=== PATIENT | male | born 1945 ===

== ENCOUNTER 2017-09-25 08:12 | Day surgery (SDC) | payer MEDICARE, SELFPAY ==
[2017-09-19 10:22] VITALS: BMI 29.0
[2017-09-25] MEDS ORDERED: Phenylephrine 2.5% Opht Soln OS ONE (09:00)
[2017-09-25] MEDS ORDERED: Tropicamide 1% Opht 150 DROP/15 ML OS SCH (09:00)
[2017-09-25] MEDS ORDERED: Lactated Ringer's 1,000 ML IV ONE (09:00)
[2017-09-25] MEDS ORDERED: Ofloxacin Ophth 0.3% Soln OS SCH (09:00)
[2017-09-25] MEDS ORDERED: Tetracaine 0.5% Ophth 2 ML BOTTLE ONE (09:08)
[2017-09-25] MEDS ORDERED: Maxitrol Opht Susp ONE (09:08)
[2017-09-25] MEDS ORDERED: Acetylcholine 1% Opth System Pack IO ONE (09:08)
[2017-09-25] MEDS ORDERED: EPINEPHrine 1 mg/ml (1:1000) Inj ONE (09:09)
[2017-09-25] MEDS ORDERED: CA CL/K CL/NA CL 500 ML IR ONE (09:09)
[2017-09-25] MEDS ORDERED: BSS 15 ML 45 ML IR ONE (09:09)
[2017-09-25] MEDS ORDERED: Chondroitin/Hyaluronate Opth Syringe KIT (0.55 ml-0.5 ml) IO ONE (09:09)
[2017-09-25] MEDS ORDERED: Pilocarpine 1% Opht Soln ONE (09:09)
[2017-09-25] MEDS ORDERED: Povidone Iodine 5% Opht SOLUTION ONE (09:10)
[2017-09-25] MEDS ORDERED: Flurbiprofen 0.3% Opht SOLN OS ONE (09:15)
[2017-09-25] MEDS ORDERED: Midazolam 2 MG/2 ML VIAL ONE (10:30)
[2017-09-25] MEDS ORDERED: Lidocaine 1% 20 MG/2 ML PF AMP EP ONE (10:45)
[2017-09-25 16:00] VITALS: BP 137/76; PULSE 67; RESP 67; TEMP 98; O2SAT 96
--- NOTE | 2017-09-27 07:06 | OP ---
PROCEDURE DATE : 09/25/17 SURGEON: CHEN WATSON MD ANESTHESIOLOGIST: LUCHO SCHUSTER MD ANESTHESIA: LOCAL / IV SEDATION PREOPERATIVE DIAGNOSIS: CATARACT LEFT EYE. POSTOPERATIVE DIAGNOSIS: CATARACT LEFT EYE. OPERATION: CLEAR CORNEAL PHACOEMULSIFICATION WITH LENS IMPLANT LEFT EYE. PREPARATION AND PROCEDURE: After the patient was prepped and draped in the usual manner for sterile ophthalmic surgery, local IV sedation was administered ; eye seals were applied to the upper and lower lid margins and an adult wire lid speculum was placed within the lids. Under microsurgical control, a two- step clear corneal incision was made into the anterior chamber. The initial incision was perpendicular to the corneal plane. The second incision with the keratome was placed at a 45-degree angle to the first incision. One cc of one percent Xylocaine MPF was instilled into the anterior chamber to achieve proper intraocular anesthesia. At this time, the Viscoelastic was injected into the anterior chamber for protection of the endothelium and for maintenance of the chamber depth. A 360-degree continuous curvilinear capsulorrhexis was performed using a pre-bent 25-gauge needle. Hydrodissection and hydrodelineation were performed using a Reyes cannula and balanced salt solution. Utilizing the tip of the Reyes cannula, the nucleus was rotated freely within the capsular bag. A standard one-handed phacoemulsification was utilized at this time for sculpting and rotating of the nucleus. The nucleus was fragmented in its entirety and aspirated without any consequence. A standard I&A was carried out for the residual cortical material. No residual material was noted within the capsular bag. The posterior capsule was noted to be clear. Additional Viscoelastic was injected into the capsular bag in preparation for lens implantation. After this has been satisfactorily achieved the intraocular lens injected through the corneal incision into the capsular bag. The intraocular lens was manipulated until it was properly oriented and the Viscoelastic was evacuated from the capsular bag and anterior chamber. The anterior chamber was reformed with balanced salt solution. The corneal incision was irrigated with BSS. The intraocular pressure was found to be within normal limits. This terminated the procedure. The speculum and lid drapes were removed. TobraDex ophthalmic suspension and Piloc[place] 1% drops one drop was applied to the eye. POSTOPERATIVE CONDITION: The patient was brought to the Post anesthesia Recovery area with stable vital signs. DCHEN DAWSON MD
== END 2017-09-25 14:20 | disposition home or self-care (01) ==
LOC: H.OPSURG 08:12
PROVIDERS: ATTEND Ophthalmology
DX: H25.812 Combined forms of age-related cataract, left eye (principal); E78.5 Hyperlipidemia, unspecified; I10 Essential (primary) hypertension; F32.9 Major depressive disorder, single episode, unspecified
CPT/HCPCS: 66984; J0171; J2250; J3010; J7120; V2632

== ENCOUNTER 2017-10-03 21:10 | Inpatient (IN) | payer MEDICARE, OTHER ==
[2017-10-03 21:10] VITALS: BMI 29.0
[2017-10-03] MEDS ORDERED: Albuterol-Ipratrop 3 mg / 0.5 (3 ml) UD IH STA (23:58)
--- NOTE | 2017-10-04 00:01 | ED PDOC ---
HPI: CCC, URI, Sore Throat <Pratik Mack - Last Filed: 10/04/17 02:14> Chief Complaint (Provider): flu-like symptoms History Per: Patient History/Exam Limitations: no limitations Onset/Duration Of Symptoms: Days (2) Current Symptoms Are (Timing): Still Present Location Of Pain: Diffuse Myalgias Associated Symptoms: Fever, Chills, Cough, Myalgias, Nasal Congestion Additional History Per: Patient <Sarah Amaro - Last Filed: 10/04/17 03:59> Time Seen by Provider: 10/03/17 23:28 Chief Complaint (Nursing): Fever Additional Complaint(s): 72 y/o male presents with flu-like symptoms x 2 days. Patient reports fever, tmax 103, sneezing, nasal congestion, and productive cough. Patient notes pain in chest and back when coughing. Denies headache, neck pain, vomiting, shortness of breath, palpitations, abdominal pain, changes in bowel movements. Theraflu taken at 20:30. (Sarah Amaro) Past Medical History <Pratik Mack - Last Filed: 10/04/17 02:14> Reviewed: Historical Data, Nursing Documentation, Vital Signs - Medical History PMH: Anxiety, Depression, HTN, Hypercholesterolemia, Kidney Stones - Surgical History Surgical History: Cholecystectomy - Family History Family History: States: Unknown Family Hx - Immunization History Hx Tetanus Toxoid Vaccination: No Hx Influenza Vaccination: No Hx Pneumococcal Vaccination: No <Sarah Amaro - Last Filed: 10/04/17 03:59> Vital Signs: Last Vital Signs Temp 99.7 F H 10/03/17 22:13 Pulse 85 10/04/17 01:53 Resp 20 10/03/17 23:41 BP 127/72 10/03/17 23:41 Pulse Ox 95 10/04/17 02:07 - Home Medications Home Medications: Ambulatory Orders Medication Instructions Recorded Acetaminophen [Tylenol 325mg tab] 325 mg PO Q6 09/25/17 Dexlansoprazole [Dexilant] 60 mg PO DAILY 09/25/17 Mirtazapine [Remeron] 15 mg PO HS 09/25/17 Sertraline [Zoloft] 10 mg PO DAILY 09/25/17 Simvastatin [Zocor] 20 mg PO HS 09/25/17 Valsartan [Diovan] 40 mg PO DAILY 09/25/17 - Allergies Allergies/Adverse Reactions: Allergies Allergy/AdvReac Type Severity Reaction Status Date / Time No Known Allergies Allergy Verified 09/25/17 08:33 Review of Systems ROS Statement: Except As Marked, All Systems Reviewed And Found Negative Constitutional: Positive for: Fever, Chills ENT: Positive for: Nose Congestion Respiratory: Positive for: Cough <Sarah Amaro C - Last Filed: 10/04/17 03:59> Physical Exam - Reviewed Nursing Documentation Reviewed: Yes Vital Signs Reviewed: Yes - Physical Exam Appears: Positive for: Well, Non-toxic, No Acute Distress Head Exam: Positive for: ATRAUMATIC, NORMAL INSPECTION, NORMOCEPHALIC Skin: Positive for: Normal Color Eye Exam: Positive for: Normal appearance ENT: Positive for: Nasal Congestion Neck: Positive for: Normal Cardiovascular/Chest: Positive for: Regular Rate, Rhythm Respiratory: Positive for: Normal Breath Sounds Gastrointestinal/Abdominal: Positive for: Normal Exam Back: Positive for: Normal Inspection Extremity: Positive for: Normal ROM Neurologic/Psych: Positive for: Alert, Oriented <Sarah Amaro C - Last Filed: 10/04/17 03:59> - Laboratory Results Result Diagrams: 10/04/17 00:50 10/04/17 00:50 <Pratik Mack - Last Filed: 10/04/17 02:14> - Laboratory Results Result Diagrams: 10/04/17 00:50 10/04/17 00:50 - ECG O2 Sat by Pulse Oximetry: 95 <Ann Amaroanda Mario - Last Filed: 10/04/17 03:59> - Progress ED Course And Treament: labs, flu, chest xray, ibuprofen PO, duoneb EXAM: XR Chest, 2 Views CLINICAL HISTORY: 72 years old, male; Signs and symptoms; Fever; Additional info: Fever, cough TECHNIQUE: Frontal and lateral views of the chest. COMPARISON: CR - CHEST TWO VIEWS (PA/LAT) 2017-09-19 10:33 FINDINGS: Lungs: There is minimal bibasilar atelectasis. Pleural space: Unremarkable. No pneumothorax. Heart: Unremarkable. No cardiomegaly. Mediastinum: Unremarkable. Bones/joints: Degenerative changes. IMPRESSION: No active disease. Patient flu+. Tamiflu PO given. On re-eval, patient O2 92% on room air Case discussed with Dr. Radford, FP resident on-call, for placement in observation for hypoxia with influenza (Sarah Amaro) Disposition <Pratik Mack - Last Filed: 10/04/17 02:14> - Patient ED Disposition Is Patient to be Admitted: Yes - Disposition Disposition Time: 03:30 <Sarah Amaro - Last Filed: 10/04/17 03:59> - Clinical Impression Clinical Impression: Influenza, Hypoxia - Disposition Condition: FAIR
[2017-10-04 00:58] LABS: VENOUS BLOOD GAS BASE EXCESS -0.1 mmol/L (0.0-2.0); VENOUS BLOOD GAS PCO2 36 mmHg (40-60); VENOUS BLOOD GAS PO2 54 mm/Hg (30-55); VENOUS BLOOD PH 7.43 (7.32-7.43)
[2017-10-04] MEDS ORDERED: Albuterol-Ipratrop 3 mg / 0.5 (3 ml) UD ONE (01:02)
[2017-10-04 01:06] LABS: BASO # 0.1 K/uL (0.0-0.2); BASO % 0.7 % (0.0-2.0); EOS % 0.3 % (0.0-4.0); HEMOGLOBIN 13.9 g/dL (12.0-18.0); LYMPH # 0.7 K/uL (1.0-4.3); LYMPH % 8.4 % (20.0-40.0); MEAN CORPUSCULAR HGB CONC 33.4 g/dL (33.0-37.0); MEAN PLATELET VOLUME 9.3 fl (7.2-11.7); MONO # 0.7 K/uL (0.0-0.8); MONO % 8.6 % (0.0-10.0); NEUT # 6.8 K/uL (1.8-7.0); NRBC % 0.1 % (0.0-0.0); PLATELET COUNT 147 K/uL (130-400); RBC 4.49 Mil/uL (4.40-5.90); RED CELL DISTRIBUTION WIDTH 13.4 % (11.5-14.5); WHITE BLOOD COUNT 8.3 K/uL (4.8-10.8)
[2017-10-04 01:43] LABS: ALB/GLOB RATIO 1.4 (1.0-2.1); ALBUMIN 4.3 g/dL (3.5-5.0); ALT/SGPT 93 U/L (21-72); AST/SGOT 60 U/L (17-59); BLOOD UREA NITROGEN 13 mg/dl (9-20); CALCIUM 9.2 mg/dL (8.4-10.2); GFR AFRICAN-AMERICAN > 60; GFR NON-AFRICAN AMERICAN > 60
--- NOTE | 2017-10-04 02:01 | RAD ---
EXAM: XR Chest, 2 Views CLINICAL HISTORY: 72 years old, male; Signs and symptoms; Fever; Additional info: Fever, cough TECHNIQUE: Frontal and lateral views of the chest. COMPARISON: CR - CHEST TWO VIEWS (PA/LAT) 2017-09-19 10:33 FINDINGS: Lungs: There is minimal bibasilar atelectasis. Pleural space: Unremarkable. No pneumothorax. Heart: Unremarkable. No cardiomegaly. Mediastinum: Unremarkable. Bones/joints: Degenerative changes. IMPRESSION: No active disease.
--- NOTE | 2017-10-04 03:26 | CP.PCM.HP ---
History of Present Illness - History of Present Illness History of Present Illness: 72 yo ,m,PMhx/o HTN, HLD, Anxiety, Depression presents to Ed c/o dry cough started 2 days ago associated with fever T max 103 , malaise, generalized body aches, sore throat, low appetite, nausea. He denies SOB, chest pain, vomiting, diarrhea, dysuria, sick contact, recent travel, hx/o DVT, orthopnea, PND, pedal edema. Patient had flu shot 05/2017. On evaluation of patient, no respiratory distress noted but O2 sat 88-90 while speaking. PMD: [facility]. Dr Brooke PMhx: HTN, HLD, Anxiety, Depression Allergies: NKDA Meds: Simvastatin 20 mg daily, Valsartan 40 mg daily, Mirtazapine 15 mg daily, Sertraline 100 mg daily . PSurgHx: Left knee arthroscopy x 3 times. Prostate laser procedure, cholecystectomy, Right inguinal hernia, Left eye cataracts. Pending right eye cataracts next week. PShx: No ETOH,rect drugs, cig ED Course VS: O2 sat 95, rest normal. Labs: CBC: wbc normal. Neutrophilia . VBG: PH normal, PO2 normal. PCO2 36. Flu test positive for influenza A Imaging: CXR: no acute disease, no infiltrates. Meds: Duoneb, tamiflu Present on Admission - Present on Admission Any Indicators Present on Admission: No History of DVT/PE: No History of Uncontrolled Diabetes: No Urinary Catheter: No Review of Systems - Constitutional Constitutional: As Per HPI, Anorexia, Fatigue, Fever - Cardiovascular Cardiovascular: As Per HPI - Respiratory Respiratory: absent: Dyspnea - Gastrointestinal Gastrointestinal: As Per HPI Past Patient History - Infectious Disease Hx of Infectious Diseases: None - Past Medical History & Family History Past Medical History?: Yes - Past Social History Smoking Status: Never Smoked - CARDIAC Hx Hypercholesterolemia: Yes Hx Hypertension: Yes - HEENT Hx Cataracts: Yes - RENAL Hx Kidney Stones: Yes - MUSCULOSKELETAL/RHEUMATOLOGICAL Hx Falls: No - GASTROINTESTINAL Hx Ulcer: Yes - GENITOURINARY/GYNECOLOGICAL Hx Prostate Problems: Yes - PSYCHIATRIC Hx Anxiety: Yes Hx Depression: Yes - SURGICAL HISTORY Hx Cholecystectomy: Yes - ANESTHESIA Hx Anesthesia: Yes Hx Anesthesia Reactions: No Hx Malignant Hyperthermia: No Meds Allergies/Adverse Reactions: Allergies Allergy/AdvReac Type Severity Reaction Status Date / Time No Known Allergies Allergy Verified 09/25/17 08:33 Physical Exam - Constitutional Appears: No Acute Distress - Head Exam Head Exam: ATRAUMATIC, NORMOCEPHALIC - Eye Exam Eye Exam: Normal appearance - ENT Exam ENT Exam: Mucous Membranes Moist - Respiratory Exam Respiratory Exam: Clear to Auscultation Bilateral. absent: Rhonchi, Wheezes - Cardiovascular Exam Cardiovascular Exam: REGULAR RHYTHM, +S1, +S2 - GI/Abdominal Exam GI & Abdominal Exam: Normal Bowel Sounds, Soft. absent: Guarding, Tenderness - Extremities Exam Extremities exam: Positive for: normal inspection. Negative for: calf tenderness - Neurological Exam Neurological exam: Alert, Oriented x3 - Psychiatric Exam Psychiatric exam: Normal Affect, Normal Mood - Skin Skin Exam: Intact Results - Vital Signs Recent Vital Signs: Last Vital Signs Temp 99.7 F H 10/03/17 22:13 Pulse 85 10/04/17 01:53 Resp 20 10/03/17 23:41 BP 127/72 10/03/17 23:41 Pulse Ox 95 10/04/17 02:07 - Labs Result Diagrams: 10/04/17 00:50 10/04/17 00:50 Labs: Laboratory Results - last 24 hr 10/04/17 10/04/17 10/04/17 00:50 00:50 00:50 WBC 8.3 RBC 4.49 Hgb 13.9 Hct 41.8 MCV 93.0 MCH 31.0 MCHC 33.4 RDW 13.4 Plt Count 147 MPV 9.3 Neut % (Auto) 82.0 H Lymph % (Auto) 8.4 L [place] % (Auto) 8.6 Eos % (Auto) 0.3 Baso % (Auto) 0.7 Neut # (Auto) 6.8 Lymph # (Auto) 0.7 L [place] # (Auto) 0.7 Eos # (Auto) 0.0 Baso # (Auto) 0.1 pO2 VBG pH VBG pCO2 VBG HCO3 VBG Total CO2 VBG O2 Sat (Calc) VBG Base Excess VBG Potassium Glucose Lactate FiO2 Sodium 136 Potassium 3.9 Chloride 102 Carbon Dioxide 23 Anion Gap 15 BUN 13 Creatinine 1.0 Est GFR ( Amer) > 60 Est GFR (Non-Af Amer) > 60 Random Glucose 140 H Calcium 9.2 Total Bilirubin 1.6 H AST 60 H D ALT 93 H D Alkaline Phosphatase 77 Troponin I 0.0300 Total Protein 7.4 Albumin 4.3 Globulin 3.1 Albumin/Globulin Ratio 1.4 Venous Blood Potassium Influenza Typ A,B (EIA) Pos for influenza a H 10/04/17 00:55 WBC RBC Hgb Hct MCV MCH MCHC RDW Plt Count MPV Neut % (Auto) Lymph % (Auto) [place] % (Auto) Eos % (Auto) Baso % (Auto) Neut # (Auto) Lymph # (Auto) [place] # (Auto) Eos # (Auto) Baso # (Auto) pO2 54 VBG pH 7.43 VBG pCO2 36 L VBG HCO3 24.6 VBG Total CO2 25.0 VBG O2 Sat (Calc) 93.3 H VBG Base Excess -0.1 L VBG Potassium 3.8 Glucose 142 H Lactate 1.0 FiO2 21.0 Sodium 133.0 Potassium Chloride 101.0 Carbon Dioxide Anion Gap BUN Creatinine Est GFR ( Amer) Est GFR (Non-Af Amer) Random Glucose Calcium Total Bilirubin AST ALT Alkaline Phosphatase Troponin I Total Protein Albumin Globulin Albumin/Globulin Ratio Venous Blood Potassium 3.8 Influenza Typ A,B (EIA) Assessment & Plan - Assessment and Plan (Free Text) Plan: 72 yo ,m,PMhx/o HTN, HLD, Anxiety, Depression admitted for Influenza and Hypoxia Assessment/Plan 1)Influenza -influenza test positive for Influenza A -CXR: normal, no infiltrates -s/p tamiflu Ed -c/w Tamiflu 75 mg BID x 5 days -Admit telemetry -Hypoxia noted on room air 88-90 while speaking -no respiratory distress -O2 NC 3L PRN SOB -Duoneb PRN sob 2)Transaminitis -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 7)DVT Prophylaxis -Lovenox 40 mg sc daily
[2017-10-04] MEDS ORDERED: Albuterol-Ipratrop 3 mg / 0.5 (3 ml) UD INH PRN (03:38)
[2017-10-04 03:55] LABS: BANDS 1 % (0-2); LYMPHOCYTE 6 % (20-50); MONOCYTE 5 % (0-10); NEUTROPHIL 85 % (42-75); PLATELET ESTIMATE NORMAL (NORMAL); REACTIVE LYMPHOCYTES 3 % (0-0); TOTAL CELLS COUNTED 100
[2017-10-04] MEDS: Enoxaparin 40 mg Syringe SC SCH (09:42)
[2017-10-04] MEDS: Pantoprazole 40 mg EC Tab PO SCH (09:45)
[2017-10-04] MEDS ORDERED: Pneumococcal 23-Valent Vaccine IM ONE (10:18)
--- NOTE | 2017-10-04 11:14 | CARD ---
APPROVED REPORT EKG Measurement Heart [id number] <Conclusion> Normal sinus rhythm Left ventricular hypertrophy with repolarization abnormality Abnormal ECG artefact present
[2017-10-04] MEDS: Ofloxacin Ophth 0.3% Soln OS SCH ×2 (17:48→22:01)
[2017-10-04] MEDS: DICLOFENAC SODIUM OS SCH (17:48)
[2017-10-04] MEDS: PrednisoLONE 1% OPTH SUSP OS SCH ×2 (17:49→22:03)
[2017-10-04] MEDS: Promethazine/Cod 6.25mg-10mg/5ml Syr UD PO SCH ×2 (17:52→22:01)
--- NOTE | 2017-10-04 18:01 | RAD ---
HISTORY: r/o pna COMPARISON: Comparison chest dated 10/04/2017. TECHNIQUE: Chest PA and lateral FINDINGS: LUNGS: Minor bibasilar atelectasis and/or scarring. PLEURA: No significant pleural effusion identified. No pneumothorax apparent. CARDIOVASCULAR: Normal. OSSEOUS STRUCTURES: Minor multilevel degenerative spondylosis of the thoracic spine. Open the VISUALIZED UPPER ABDOMEN: Normal. OTHER FINDINGS: None. IMPRESSION: Minor bibasilar atelectasis or scarring.
[2017-10-05] MEDS: DICLOFENAC SODIUM OS SCH ×3 (01:08→16:40)
[2017-10-05] MEDS: Promethazine/Cod 6.25mg-10mg/5ml Syr UD PO SCH ×4 (04:23→21:14)
[2017-10-05] MEDS: Ofloxacin Ophth 0.3% Soln OS SCH ×4 (04:24→21:14)
[2017-10-05] MEDS: PrednisoLONE 1% OPTH SUSP OS SCH ×4 (04:25→21:16)
--- NOTE | 2017-10-05 07:28 | PQF GENQUE ---
This form is a permanent part of the medical record 10/05/17 Dr. Butch Crump, The medical record ( H&P ) includes the following unknown abbreviation: Transaminitis may be secondary to NAFLD Please document the associated medical diagnosis related to the above abbreviation. Clarification of your documentation is requested to better reflect the severity of illness and intensity of treatment of your patient. Indicators present PHYSICIAN'S RESPONSE Non alcholoco liver disease Based on your medical judgment of the clinical indicators outlined above please clarify the following: [] Practitioner response [] If unable to determine, please check the box, sign and date. Present On Admission (POA) Indicator: [] Present at the time of admission [] Not present at the time of admission [] Clinically Undetermined In responding to this query, please exercise your independent professional judgment. The fact that a question is asked does not imply that any particular answer is desired or expected. Thank you for your clarification on this documentation. If you have any questions please call:ext [phone] * Thank you, Cora Munguia RN [facility]
[2017-10-05] MEDS: Pantoprazole 40 mg EC Tab PO SCH (08:40)
[2017-10-05] MEDS: Enoxaparin 40 mg Syringe SC SCH (08:41)
--- NOTE | 2017-10-05 14:07 | CP.PCM.PN ---
Subjective - Date & Time of Evaluation Date of Evaluation: 10/05/17 Time of Evaluation: 09:30 - Subjective Subjective: Patient seen and examined this morning. NAD, Afebrile, comfortably breathing on 2L NC, denies any acute event overnight but he is c/o coughing, sore throat, body aches and mild dizziness. Denies any vomiting, chest pain, SOB, numbness, tingling or urinary symptoms. Patient is tolerating PO diet. Objective - Vital Signs/Intake and Output Vital Signs (last 24 hours): Temp Pulse Resp BP Pulse Ox 98.3 F 71 20 116/69 97 10/05/17 12:00 10/05/17 12:00 10/05/17 12:00 10/05/17 12:00 10/05/17 12:00 Intake and Output: 10/05/17 10/05/17 06:59 18:59 Intake Total 1200 Balance 1200 - Medications Medications: Current Medications Acetaminophen (Tylenol 325mg Tab) 650 mg PO Q6 PRN PRN Reason: Pain, Mild (1-3) Last Admin: 10/04/17 17:54 Dose: 650 mg Acetaminophen (Tylenol 325mg Tab) 650 mg PO Q6 PRN PRN Reason: Fever >100.4 F Albuterol/Ipratropium (Duoneb 3 Mg/0.5 Mg (3 Ml) Ud) 3 ml INH RQ6 PRN PRN Reason: Shortness of Breath Atorvastatin Calcium (Lipitor) 10 mg PO HS [facility] Last Admin: 10/04/17 22:01 Dose: 10 mg Enoxaparin Sodium (Lovenox) 40 mg SC DAILY [facility] PRN Reason: Protocol Last Admin: 10/05/17 08:41 Dose: 40 mg Home Med (Diclofenac Sodium [Diclozor]) 1 each OS Q8 [facility] Last Admin: 10/05/17 08:42 Dose: Not Given Mirtazapine (Remeron) 15 mg PO HS [facility] Last Admin: 10/04/17 22:01 Dose: 15 mg Ofloxacin (Ocuflox Ophth 0.3%) 1 drop OS Q6 [facility] Last Admin: 10/05/17 10:00 Dose: 1 drop Ondansetron HCl (Zofran Inj) 4 mg IVP Q6 PRN PRN Reason: Nausea/Vomiting Oseltamivir Phosphate (Tamiflu Cap) 75 mg PO Q12 [facility] PRN Reason: Protocol Last Admin: 10/05/17 08:41 Dose: 75 mg Pantoprazole Sodium (Protonix Ec Tab) 40 mg PO DAILY [facility] Last Admin: 10/05/17 08:40 Dose: 40 mg Pneumococcal Polyvalent Vaccine (Pneumovax 23 Vaccine) 0.5 ml IM .ONCE ONE Stop: 10/18/17 15:08 Prednisolone Acetate (Pred Forte 1% Opht Susp) 1 drop OS Q6 [facility] Last Admin: 10/05/17 10:00 Dose: 1 drop Promethazine HCl/Codeine (Phenergan/Codeine Oral Syrup) 5 ml PO Q6 [facility] Last Admin: 10/05/17 10:02 Dose: 5 ml Sertraline HCl (Zoloft) 100 mg PO DAILY [facility] Last Admin: 10/05/17 08:41 Dose: 100 mg Valsartan (Diovan) 40 mg PO DAILY [facility] Last Admin: 10/05/17 08:42 Dose: 40 mg - Labs Labs: 10/04/17 00:50 10/04/17 00:50 - Constitutional Appears: No Acute Distress - Head Exam Head Exam: ATRAUMATIC, NORMAL INSPECTION, NORMOCEPHALIC - Eye Exam Eye Exam: EOMI, Normal appearance, PERRL - ENT Exam ENT Exam: Mucous Membranes Moist - Neck Exam Neck Exam: Normal Inspection - Respiratory Exam Respiratory Exam: Clear to Ausculation Bilateral, NORMAL BREATHING PATTERN. absent: Accessory Muscle Use - Cardiovascular Exam Cardiovascular Exam: REGULAR RHYTHM - GI/Abdominal Exam GI & Abdominal Exam: Soft, Normal Bowel Sounds. absent: Tenderness - Extremities Exam Extremities Exam: Full ROM, Normal Capillary Refill, Normal Inspection - Back Exam Back Exam: absent: CVA tenderness (L), CVA tenderness (R) - Neurological Exam Neurological Exam: Alert, Awake, Oriented x3 - Psychiatric Exam Psychiatric exam: Normal Affect - Skin Skin Exam: Dry, Intact, Normal Color, Warm Assessment and Plan - Assessment and Plan (Free Text) Assessment: A/P: 72 y/o male with HTN, HLD, Anxiety, Depression admitted for Influenza and Hypoxia 1)Influenza -Positive for Influenza A -CXR: normal, no infiltrates -c/w Tamiflu 75 mg BID x 5 days -Phenergan/Codeine Oral Syrup 5 ml PO Q6 for sore throat -Tylenol PRN 2) Hypoxia -May be due to viral infection -Hypoxia noted on room air 88-90 while speaking on admission -D/c oxygen NC today -Monitor Spo2, VS and Respiratory status -Duoneb PRN -Walk test today 3) Mild asymptomatic Transaminitis -May be secondary to Nonalcoholic liver disease -AST/ALT 60/93 -pt also taking statin 4)HTN -c/w home medications Valsartan 40 mg daily 5)HLD -Simvastatin 20 mg daily 6) Diabetes Mellitus Type II -HBA1C 6.8 -Out patient follow up eliane' -Lifestyle Modifications and diet control 7)Depression -c/w home meds Mirtazepine, Sertraline. 8)DVT Prophylaxis -Lovenox 40 mg sc daily 9)GI PPX -PPI
[2017-10-06] MEDS: DICLOFENAC SODIUM OS SCH ×2 (00:16→09:38)
[2017-10-06] MEDS: PrednisoLONE 1% OPTH SUSP OS SCH ×2 (04:10→09:40)
[2017-10-06] MEDS: Promethazine/Cod 6.25mg-10mg/5ml Syr UD PO SCH ×2 (04:10→12:09)
[2017-10-06 04:13] VITALS: RESP 18
[2017-10-06] MEDS: Ofloxacin Ophth 0.3% Soln OS SCH ×2 (04:13→09:06)
[2017-10-06] MEDS: Pantoprazole 40 mg EC Tab PO SCH (09:04)
[2017-10-06] MEDS: Enoxaparin 40 mg Syringe SC SCH (09:05)
[2017-10-06 12:33] VITALS: BP 136/65; PULSE 70; TEMP 98; O2SAT 97
--- NOTE | 2017-10-06 12:55 | CP.PCM.DIS ---
Provider - Provider Date of Admission: 10/04/17 16:21 Attending physician: Deedee Joseph MD Time Spent in preparation of Discharge (in minutes): 30 Diagnosis - Discharge Diagnosis (1) Influenza Status: Acute (2) Hypoxia Status: Acute Hospital Course - Lab Results Lab Results: Micro Results 10/04/17 00:50 Blood-Venous Blood Culture - Preliminary NO GROWTH AFTER 48 HOURS Most Recent Lab Values WBC 8.3 K/uL (4.8-10.8) 10/04/17 00:50 RBC 4.49 Mil/uL (4.40-5.90) 10/04/17 00:50 Hgb 13.9 g/dL (12.0-18.0) 10/04/17 00:50 Hct 41.8 % (35.0-51.0) 10/04/17 00:50 MCV 93.0 fl (80.0-94.0) 10/04/17 00:50 MCH 31.0 pg (27.0-31.0) 10/04/17 00:50 MCHC 33.4 g/dL (33.0-37.0) 10/04/17 00:50 RDW 13.4 % (11.5-14.5) 10/04/17 00:50 Plt Count 147 K/uL (130-400) 10/04/17 00:50 MPV 9.3 fl (7.2-11.7) 10/04/17 00:50 Neut % (Auto) 82.0 % (50.0-75.0) H 10/04/17 00:50 Lymph % (Auto) 8.4 % (20.0-40.0) L 10/04/17 00:50 Rolette % (Auto) 8.6 % (0.0-10.0) 10/04/17 00:50 Eos % (Auto) 0.3 % (0.0-4.0) 10/04/17 00:50 Baso % (Auto) 0.7 % (0.0-2.0) 10/04/17 00:50 Neut # (Auto) 6.8 K/uL (1.8-7.0) 10/04/17 00:50 Lymph # (Auto) 0.7 K/uL (1.0-4.3) L 10/04/17 00:50 Rolette # (Auto) 0.7 K/uL (0.0-0.8) 10/04/17 00:50 Eos # (Auto) 0.0 K/uL (0.0-0.7) 10/04/17 00:50 Baso # (Auto) 0.1 K/uL (0.0-0.2) 10/04/17 00:50 Neutrophils % (Manual) 85 % (42-75) H 10/04/17 00:50 Band Neutrophils % 1 % (0-2) 10/04/17 00:50 Lymphocytes % (Manual) 6 % (20-50) L 10/04/17 00:50 Reactive Lymphs % 3 % (0-0) H 10/04/17 00:50 Monocytes % (Manual) 5 % (0-10) 10/04/17 00:50 Platelet Estimate Normal (NORMAL) 10/04/17 00:50 pO2 54 mm/Hg (30-55) 10/04/17 00:55 VBG pH 7.43 (7.32-7.43) 10/04/17 00:55 VBG pCO2 36 mmHg (40-60) L 10/04/17 00:55 VBG HCO3 24.6 mmol/L 10/04/17 00:55 VBG Total CO2 25.0 mmol/L (22-28) 10/04/17 00:55 VBG O2 Sat (Calc) 93.3 % (40-65) H 10/04/17 00:55 VBG Base Excess -0.1 mmol/L (0.0-2.0) L 10/04/17 00:55 VBG Potassium 3.8 mmol/L (3.6-5.2) 10/04/17 00:55 Sodium 133.0 mmol/L (132-148) 10/04/17 00:55 Chloride 101.0 mmol/L (98-107) 10/04/17 00:55 Glucose 142 mg/dL (75-110) H 10/04/17 00:55 Lactate 1.0 mmol/L (0.7-2.1) 10/04/17 00:55 FiO2 21.0 % 10/04/17 00:55 Sodium 136 mmol/l (132-148) 10/04/17 00:50 Potassium 3.9 MMOL/L (3.6-5.0) 10/04/17 00:50 Chloride 102 mmol/L (98-107) 10/04/17 00:50 Carbon Dioxide 23 mmol/L (22-30) 10/04/17 00:50 Anion Gap 15 (10-20) 10/04/17 00:50 BUN 13 mg/dl (9-20) 10/04/17 00:50 Creatinine 1.0 mg/dl (0.8-1.5) 10/04/17 00:50 Est GFR ( Amer) > 60 10/04/17 00:50 Est GFR (Non-Af Amer) > 60 10/04/17 00:50 Random Glucose 140 mg/dL (75-110) H 10/04/17 00:50 Hemoglobin A1c 6.8 % (4.2-6.5) H 10/04/17 06:29 Calcium 9.2 mg/dL (8.4-10.2) 10/04/17 00:50 Total Bilirubin 1.6 mg/dl (0.2-1.3) H 10/04/17 00:50 AST 60 U/L (17-59) H D 10/04/17 00:50 ALT 93 U/L (21-72) H D 10/04/17 00:50 Alkaline Phosphatase 77 U/L (38-126) 10/04/17 00:50 Troponin I 0.0300 ng/mL (0.00-0.120) 10/04/17 00:50 Total Protein 7.4 G/DL (6.3-8.2) 10/04/17 00:50 Albumin 4.3 g/dL (3.5-5.0) 10/04/17 00:50 Globulin 3.1 gm/dL (2.2-3.9) 10/04/17 00:50 Albumin/Globulin Ratio 1.4 (1.0-2.1) 10/04/17 00:50 Venous Blood Potassium 3.8 mmol/L (3.6-5.2) 10/04/17 00:55 Influenza Typ A,B (EIA) Pos for influenza a (NEGATIVE) H 10/04/17 00:50 - Hospital Course Hospital Course: Patient is a 72 y/o M with PMH including HTN, HLD, Anxiety, Depression who presented to ED with flu-like symptoms including cough, fever, body aches and malaise. He was found to have influenza A so tamiflu was started. Patient was also hypoxic in the 88-90 range so he was admitted for further evaluation. During admission hypoxia resolved with IV fluids and tamiflu. He was able to complete a walking test with O2 sats in the 97% range so decision was made to d/ c home with close follow up to PCP. Discharge Exam - Head Exam Head Exam: ATRAUMATIC, NORMAL INSPECTION, NORMOCEPHALIC - Eye Exam Eye Exam: EOMI, PERRL - ENT Exam ENT Exam: Mucous Membranes Moist - Respiratory Exam Respiratory Exam: Clear to PA & Lateral, NORMAL BREATHING PATTERN. absent: Rhonchi, Wheezes, Respiratory Distress - Cardiovascular Exam Cardiovascular Exam: RRR, +S1, +S2, Systolic Murmur - GI/Abdominal Exam GI & Abdominal Exam: Soft. absent: Distended, Tenderness - Extremities Exam Additional comments: no calf tenderness or pedal edema - Neurological Exam Neurological exam: Alert, Oriented x3 - Psychiatric Exam Psychiatric exam: Normal Affect, Normal Mood - Skin Skin Exam: Dry, Warm Discharge Plan - Discharge Medications Prescriptions: Codeine Phosphate/Guaifenesin [Guaifen-Codeine 100-10 mg/5 ml] 120 ml PO Q6H PRN #120 ml PRN Reason: Cough Oseltamivir [Tamiflu Cap] 75 mg PO Q12 #6 cap - Follow Up Plan Condition: FAIR Disposition: HOME/ ROUTINE Patient education suggested?: Yes Instructions: Flu, Adult (DC) Additional Instructions: Patient to follow up with PCP 10/12/17 @11:00AM Complete course of tamiflu for 3 additional days Instructed not to take cough syrup when driving, could make patient drowsy ED precautions reviewed Referrals: Quentin Brooke MD [Family Provider] -
[2017-10-06] MEDS ORDERED: Pneumococcal 23-Valent Vaccine IM ONE (14:11)
[2017-10-18] MEDS ORDERED: Pneumococcal 23-Valent Vaccine IM ONE (15:07)
== END 2017-10-06 14:59 | disposition home or self-care (01) | DRG 195 ==
LOC: H.ER 21:10 → H.ERHOLD 10-04 03:28 → H.TEL 10-04 06:26 → OBSVTOIN 10-04 16:21 → H.TEL 10-04 22:48
PROVIDERS: ADMIT Family Medicine Geriatric Medicine; ATTEND Family Medicine Geriatric Medicine
PROC: 3E0234Z Introduction of Serum, Toxoid and Vaccine into Muscle, Percutaneous Approach (ICD-10-PCS; principal; 2017-10-06)
DX: J10.1 Influenza due to other identified influenza virus with other respiratory manifestations (principal); E11.9 Type 2 diabetes mellitus without complications; E78.00 Pure hypercholesterolemia, unspecified; E78.5 Hyperlipidemia, unspecified; F32.9 Major depressive disorder, single episode, unspecified; F41.9 Anxiety disorder, unspecified; I10 Essential (primary) hypertension; R09.02 Hypoxemia; Z79.899 Other long term (current) drug therapy; Z87.442 Personal history of urinary calculi; Z90.49 Acquired absence of other specified parts of digestive tract; R74.0 Nonspecific elevation of levels of transaminase and lactic acid dehydrogenase [LDH]; Z23 Encounter for immunization

== ENCOUNTER 2017-11-06 10:33 | Day surgery (SDC) | payer MEDICARE, SELFPAY ==
[2017-11-06] MEDS ORDERED: Tropicamide 1% Opht 150 DROP/15 ML OD ONE (11:15)
[2017-11-06] MEDS ORDERED: Phenylephrine 2.5% Opht Soln OD ONE (11:15)
[2017-11-06] MEDS ORDERED: Flurbiprofen 0.3% Opht SOLN OD ONE (11:15)
[2017-11-06 11:25] VITALS: BMI 28.1
[2017-11-06] MEDS ORDERED: Flurbiprofen 0.3% Opht SOLN OD SCH (11:30)
[2017-11-06] MEDS ORDERED: Phenylephrine 2.5% Opht Soln OD SCH (11:30)
[2017-11-06] MEDS ORDERED: Tropicamide 1% Opht 150 DROP/15 ML OD SCH (11:30)
[2017-11-06] MEDS ORDERED: Acetylcholine 1% Opth System Pack IO ONE ×2 (11:36→12:46)
[2017-11-06] MEDS ORDERED: Pilocarpine 1% Opht Soln ONE (11:36)
[2017-11-06] MEDS ORDERED: Tetracaine 0.5% Ophth 2 ML BOTTLE ONE (11:36)
[2017-11-06] MEDS ORDERED: Maxitrol Opht Susp ONE (11:36)
[2017-11-06] MEDS ORDERED: EPINEPHrine 1 mg/ml (1:1000) Inj ONE (11:36)
[2017-11-06] MEDS ORDERED: Povidone Iodine 5% Opht SOLUTION ONE (11:37)
[2017-11-06] MEDS ORDERED: BSS 15 ML 45 ML IR ONE (11:37)
[2017-11-06] MEDS ORDERED: Chondroitin/Hyaluronate Opth Syringe KIT (0.55 ml-0.5 ml) IO ONE ×2 (11:37→12:46)
[2017-11-06] MEDS ORDERED: CA CL/K CL/NA CL 500 ML IR ONE (11:37)
[2017-11-06] MEDS ORDERED: Midazolam 2 MG/2 ML VIAL ONE (12:34)
[2017-11-06] MEDS ORDERED: Povidone Iodine 5% Opht SOLUTION OU ONE (12:46)
[2017-11-06] MEDS ORDERED: Tetracaine 0.5% Ophth 2 ML BOTTLE OD ONE (12:46)
[2017-11-06] MEDS ORDERED: Pilocarpine 1% Opht Soln OD ONE (12:46)
[2017-11-06] MEDS ORDERED: Bupivacaine HCl 0.5% PF (10 ml) Inj IJ ONE (12:46)
[2017-11-06] MEDS ORDERED: Mepivacaine HCl 2% (20ml) Inj IJ ONE (12:46)
[2017-11-06 13:20] VITALS: RESP 18; O2SAT 97
[2017-11-06 14:12] VITALS: BP 155/74; PULSE 62; TEMP 97.9
--- NOTE | 2017-11-12 10:52 | OP ---
PROCEDURE DATE : 11/06/2017 SURGEON: CHEN WATSON MD ANESTHESIOLOGIST: LUCHO SCUHSTER MD ANESTHESIA: LOCAL/ IV SEDATION PREOPERATIVE DIAGNOSIS: CATARACT RIGHT EYE. POSTOPERATIVE DIAGNOSIS: CATARACT RIGHT EYE. OPERATION: CLEAR CORNEAL PHACOEMULSIFICATION WITH LENS IMPLANT RIGHT EYE. PREPARATION AND PROCEDURE: After the patient was prepped and draped in the usual manner for sterile ophthalmic surgery, local IV sedation was administered ; eye seals were applied to the upper and lower lid margins and an adult wire lid speculum was placed within the lids. Under microsurgical control, a two- step clear corneal incision was made into the anterior chamber. The initial incision was perpendicular to the corneal plane. The second incision with the keratome was placed at a 45-degree angle to the first incision. One cc of one percent Xylocaine MPF was instilled into the anterior chamber to achieve proper intraocular anesthesia. At this time, the Viscoelastic was injected into the anterior chamber for protection of the endothelium and for maintenance of the chamber depth. A 360-degree continuous curvilinear capsulorrhexis was performed using a pre-bent 25-gauge needle. Hydrodissection and hydrodelineation were performed using a Reyes cannula and balanced salt solution. Utilizing the tip of the Reyes cannula, the nucleus was rotated freely within the capsular bag. A standard one-handed phacoemulsification was utilized at this time for sculpting and rotating of the nucleus. The nucleus was fragmented in its entirety and aspirated without any consequence. A standard I&A was carried out for the residual cortical material. No residual material was noted within the capsular bag. The posterior capsule was noted to be clear. Additional Viscoelastic was injected into the capsular bag in preparation for lens implantation. After this has been satisfactorily achieved the intraocular lens injected through the corneal incision into the capsular bag. The intraocular lens was manipulated until it was properly oriented and the Viscoelastic was evacuated from the capsular bag and anterior chamber. The anterior chamber was reformed with balanced salt solution. The corneal incision was irrigated with BSS. The intraocular pressure was found to be within normal limits. This terminated the procedure. The speculum and lid drapes were removed. TobraDex ophthalmic suspension and Pilocarpine 1% drops one drop was applied to the eye. POSTOPERATIVE CONDITION: The patient was brought to the Post anesthesia Recovery area with stable vital signs. DCHEN DAWSON MD
== END 2017-11-06 14:00 | disposition home or self-care (01) ==
LOC: H.OPSURG 10:33
PROVIDERS: ATTEND Ophthalmology
DX: H25.811 Combined forms of age-related cataract, right eye (principal)
CPT/HCPCS: 66984; J0171; J2250; J3010; V2632